=== PATIENT | male | born 1960 | race Caucasian/White ===

== ENCOUNTER 2016-06-30 11:46 | Observation (INO) | payer MEDICARE, OTHER ==
[~2016-06-30] VITALS: Ht 185.4 cm; Wt 136.0 kg
[~2016-06-30 11:46] MED LIST: CHILDRENS CHEWA81 MG PO; K-DUR20 MEQ PO; LASIX40 MG PO; LIPITOR20 MG PO; NEURONTIN600 MG PO; NICODERM 21MG PA1 EA TD; OXYCODONE HCL10 MG PO; VIT B IM; XARELTO20 MG PO; ZESTRIL10 MG PO
[2016-06-30 12:40] LABS: URINE BILIRUBIN 1+ (NEGATIVE); URINE BLOOD TRACE (NEGATIVE); URINE GLUCOSE (UA) NORMAL (NORMAL); URINE KETONE NEGATIVE (NEGATIVE); URINE LEUKOCYTE ESTERASE TRACE (NEGATIVE); URINE NITRATE NEGATIVE (NEGATIVE); URINE PROTEIN NEGATIVE (NEGATIVE)
[2016-06-30 12:41] LABS: ALBUMIN 3.9 gm/dL (3.4-5.0); ALKALINE PHOSPHATASE 79 U/L (50-136); AMYLASE 144 U/L (15.62-74.58); AST/SGOT 9 U/L (6.66-35.34); BILIRUBIN,TOTAL 0.46 mg/dL (0.0-1.0); BLOOD UREA NITROGEN 14 mg/dL (7-18); CALCIUM 8.7 mg/dL (8.7-10.7); CARBON DIOXIDE 27 mmol/L (21-32); CREATININE 1.1 mg/dL (0.6-1.3); GLUCOSE,RANDOM 85 mg/dL (70-99); LIPASE 24 U/L (6.75-60.75); POTASSIUM 4.4 mmol/L (3.5-5.1); SODIUM 143 mmol/L (136-145)
[2016-06-30 12:45] LABS: ALT/SGPT < 5 U/L (7.53-40.17)
[2016-06-30 12:57] LABS: URINE BACTERIA TRACE (NONE SEEN); URINE MUCUS 1+; URINE RBC 0-5 /[HPF] (0-2); URINE SQUAMOUS EPITHELIAL CELL 0-10 /[HPF] (NONE SEEN); URINE WBC 0-5 /[HPF] (0-3)
[2016-06-30 13:31] LABS: BASO % 0.4 % (0.2-1.2); EOS # 0.2 10_X3_uL (0.0-0.5); EOS % 2.6 % (0.8-7.0); GRAN # 4.6 10_X3_uL (1.8-5.4); HEMATOCRIT 46.6 % (40-51); HEMOGLOBIN 15.2 g/dL (13.7-17.5); LYMPH # 1.7 10_X3_uL (1.3-3.6); LYMPH % 24.4 % (21.8-53.1); MEAN CORPUSCULAR HEMOGLOBIN 32.3 pg (27.0-33.0); MEAN CORPUSCULAR HGB CONC 32.6 g/dL (32.0-36.0); MEAN CORPUSCULAR VOLUME 98.9 fL (79-92); MEAN PLATELET VOLUME 12.6 fl (7.5-11.5); MONO # 0.5 10_X3_uL (0.3-0.8); MONO % 7.6 % (5.3-12.2); PLATELET COUNT 210 x10_3/uL (163-337); RED BLOOD COUNT 4.71 x10_6/uL (4.6-6.1); RED CELL DISTRIBUTION WIDTH 15.4 % (11.6-14.4)
== END 2016-07-01 13:28 | disposition home or self-care (01) ==
LOC: ER 11:46 → MS 15:08 → UNDODEPER 07-03 11:16
PROVIDERS: Internal Medicine; ADMIT Surgery
DX: K52.9 Noninfective gastroenteritis and colitis, unspecified (principal); R10.31 Right lower quadrant pain; I48.91 Unspecified atrial fibrillation; Z86.718 Personal history of other venous thrombosis and embolism; Z98.84 Bariatric surgery status; Z95.828 Presence of other vascular implants and grafts; I38 Endocarditis, valve unspecified; I10 Essential (primary) hypertension; Z90.49 Acquired absence of other specified parts of digestive tract; Z88.6 Allergy status to analgesic agent; Z79.899 Other long term (current) drug therapy; Z79.82 Long term (current) use of aspirin
CPT/HCPCS: 36415; 80053; 81001; 82150; 83690; 85025; 96360; 96361; 96374; 96375; 99070; 99284; 99285-25; G0378